=== PATIENT | female | born 1985 | race Caucasian/White ===

== ENCOUNTER → 2020-06-07 | Outpatient (CLI) | payer OTHER ==
[2020-06-07 14:29] LABS: TOTAL PROTEIN 7.2 GM/DL (6.4-8.2)
[2020-06-07 14:39] LABS: VITAMIN B12 LEVEL 674 PG/ML (247-911)
[2020-06-07 14:41] LABS: FOLATE 12.3 NG/ML (>5.4)
[2020-06-11 10:51] LABS: ALBUMIN 4.16 GM/DL (3.29-5.55); ALBUMIN % 57.8 % (55.8-66.1); ALPHA-1-GLOBULIN % 4.1 % (2.9-4.9); ALPHA-2-GLOBULINS 0.73 GM/DL (0.42-0.99); ALPHA-2-GLOBULINS % 10.2 % (7.1-11.8); BETA-1-GLOBULINS 0.48 GM/DL (0.28-0.60); BETA-1-GLOBULINS % 6.7 % (4.7-7.2); BETA-2-GLOBULINS 0.42 GM/DL (0.19-0.55); BETA-2-GLOBULINS % 5.8 % (3.2-6.5); GAMMA GLOBULIN % 15.4 % (11.1-18.8); GAMMA GLOBULINS 1.11 GM/DL (0.65-1.58)
== END ==
LOC: M PLALAB 09:37
PROVIDERS: ATTEND Psychiatry & Neurology Neurology
DX: G62.9 Polyneuropathy, unspecified (principal)